=== PATIENT | female | born 1985 | race Caucasian/White ===

== ENCOUNTER → 2020-05-12 | Outpatient (CLI) | payer OTHER ==
[~2020-05-12] MED LIST: ALBIPROI INH; AMOX500 PO; HYDACE5 PO; HYDACE7.5L PO; LEVFLO500 PO; LEVSOD88 PO; MAGCIT300 PO; MULVITMINE PO; NAPR500 PO; NAPR550 PO; OXYACE5T PO; PHENA200 PO; PHENTERMINE PO; PROM25 PO; RXCEPH250S PO; RXHYDACE PO; RXNAPNA550 PO; RXOXYACE PO; SENN187 PO; STOMUL PO; SULTRIDS PO
[2020-05-13 14:41] LABS: Candida species (DNA Probe) Negative (NEGATIVE); G. vaginalis (DNA Probe) Negative (NEGATIVE); T. vaginalis (DNA Probe) Negative (NEGATIVE)
[2020-05-16 15:08] LABS: HPV 16 Negative (Negative); HPV 18 Negative (Negative); HPV OTHER HR TYPES Negative (Negative)
== END | disposition home or self-care (01) ==
LOC: LAB 17:27 → LAB SHORT 17:27
PROVIDERS: Nurse Practitioner Family
DX: Z01.419 Encounter for gynecological examination (general) (routine) without abnormal findings (principal)
CPT/HCPCS: 87070; 87106; 87205; 87480; 87510; 87624; 87660; G0123

== ENCOUNTER 2021-03-28 07:16 | Inpatient (IN) | payer OTHER ==
[~2021-03-28] VITALS: Ht 162.6 cm; Wt 80.5 kg
[2021-03-28 07:45] LABS: BASOPHILS ABSOLUTE AUTO 0.03 K/mm3 (0.00-0.23); BASOPHILS PERCENT AUTO 0 % (0-2); EOSINOPHILS PERCENT AUTO 0 % (0-6); Hemoglobin 14.5 g/dL (11.5-16.0); IMMATURE GRAN ABSOLUTE AUTO 0.04 K/mm3 (0.00-0.10); IMMATURE GRAN PERCENT AUTO 1 % (0-1); LYMPHOCYTES ABSOLUTE AUTO 1.38 K/mm3 (0.84-5.20); LYMPHOCYTES PERCENT AUTO 18 % (21-46); MONOCYTES ABSOLUTE AUTO 0.51 K/mm3 (0.16-1.47); MONOCYTES PERCENT AUTO 7 % (4-13); Mean Corpuscular HGB 27.5 pg (26.0-34.0); Mean Corpuscular HGB Conc 31.5 g/dL (31.5-36.5); Mean Corpuscular Volume 87 fL (80-100); Mean Platelet Volume 11.5 fL (9.1-12.4); NEUTROPHILS ABSOLUTE AUTO 5.81 K/mm3 (1.96-9.15); NEUTROPHILS PERCENT AUTO 75 % (41-73); Platelet Count 309 K/mm3 (150-400); RDW Coefficient Variation 14.2 % (11.7-14.2); RDW Standard Deviation 45.8 fL (35.1-46.3); Red Blood Cell Count 5.28 M/mm3 (3.80-5.20); White Blood Cell Count 7.77 K/mm3 (4.00-11.30)
[2021-03-28 08:27] LABS: Alanine Aminotransfer (ALT/SGP 35 U/L (12-78); Albumin/Globulin Ratio 0.8 (0.8-1.8); Alk Phos 94 U/L (50-136); Anion Gap 27 mmol/L (6-16); Aspartate Aminotrans (AST/SGOT 27 U/L (12-37); Bilirubin, Total 0.4 mg/dL (0.1-1.0); Blood Urea Nitrogen 15 mg/dL (8-24); Bun/Creatinine Ratio 16.9 (12.0-20.0); CO2, Blood 7 mmol/L (21-32); Calcium, Blood 9.8 mg/dL (8.5-10.1); Chloride, Blood 98 mmol/L (98-108); Creatinine, Blood 0.89 mg/dL (0.40-1.00); Globulin, Blood 4.8 g/dL (2.2-4.0); Glomerular Filtration Rate >60 (60-); Glucose, Blood 484 mg/dL (70-99); Potassium, Blood 4.8 mmol/L (3.5-5.5); Sodium, Blood 132 mmol/L (136-145); Total Protein, Blood 8.8 g/dL (6.4-8.2)
[2021-03-28 10:01] LABS: PCO2 Venous 24 mmHg (38-42); PO2 Venous 104 mmHg (38-42); pH Blood Venous 7.09 (7.34-7.37)
[2021-03-28 10:02] LABS: Base Excess Venous -22.7 mmol/L; Bicarbonate Venous 9.8 mmol/L (24.0-30.0)
[2021-03-28] MEDS ORDERED: ATORVASTATIN CA20 MG PO (12:04)
[2021-03-28] MEDS ORDERED: GLIMEPIRIDE4 MG PO (12:04)
[2021-03-28] MEDS ORDERED: MONT10T PO (12:05)
[2021-03-28] MEDS ORDERED: HYDROXYZINE PAM25 MG PO (12:05)
[2021-03-28] MEDS ORDERED: ZOLOFT25 MG PO (12:05)
[2021-03-28] MEDS ORDERED: PROP10 PO (12:06)
[2021-03-28] MEDS ORDERED: SYNTHROID150 MC2 PO (12:06)
[2021-03-28] MEDS ORDERED: GABA100 PO (12:06)
[2021-03-28] MEDS ORDERED: CYMBALTA20 M2 PO (12:06)
[2021-03-28] MEDS ORDERED: BASAGLAR K100 UNIT/1 SC (12:07)
[2021-03-28] MEDS ORDERED: Depo-Prove150 MG/11 IM (12:08)
[2021-03-28] MEDS ORDERED: FAMO20 PO (12:08)
[2021-03-28 12:14] LABS: U Amphetamine Screen Not Detected; U Barbituate Screen Not Detected; U Benzodiazapine Screen Not Detected; U Buprenorphine Screen Not Detected; U Cannabinoids Screen DETECTED; U Cocaine Screen Not Detected; U Methadone Screen Not Detected; U Methamphetamine Screen Not Detected; U Opiates Screen Not Detected; U Oxycodone Screen Not Detected; U Phencyclidine Screen Not Detected; U Propoxyphene Screen Not Detected
[2021-03-28 13:51] LABS: SARS-Cov-2 (COVID-19) PCR, MMC POSITIVE (NEGATIVE)
[2021-03-28 14:13] LABS: Anion Gap 13 mmol/L (6-16); Blood Urea Nitrogen 15 mg/dL (8-24); Bun/Creatinine Ratio 19.3 (12.0-20.0); CO2, Blood 15 mmol/L (21-32); Calcium, Blood 9.3 mg/dL (8.5-10.1); Chloride, Blood 107 mmol/L (98-108); Creatinine, Blood 0.78 mg/dL (0.40-1.00); Glomerular Filtration Rate >60 (60-); Glucose, Blood 215 mg/dL (70-99); Potassium, Blood 4.4 mmol/L (3.5-5.5); Sodium, Blood 135 mmol/L (136-145)
[2021-03-28 16:31] LABS: Anion Gap 14 mmol/L (6-16); Blood Urea Nitrogen 14 mg/dL (8-24); Bun/Creatinine Ratio 19.5 (12.0-20.0); CO2, Blood 15 mmol/L (21-32); Calcium, Blood 8.8 mg/dL (8.5-10.1); Chloride, Blood 109 mmol/L (98-108); Creatinine, Blood 0.72 mg/dL (0.40-1.00); Glomerular Filtration Rate >60 (60-); Glucose, Blood 198 mg/dL (70-99); Potassium, Blood 4.5 mmol/L (3.5-5.5); Sodium, Blood 138 mmol/L (136-145)
--- NOTE | 2021-03-28 18:16 | NUR ---
SHIFT SUMMARY PT ARRIVED TO PCU VIA HOSPITAL BED APPROX 1330 W/ INSULIN DRIP RUNNING AT 3.8. PT WAS/IS ON RA AND SATURATIONS RANGE IN UPPER 90'S. PT IS ALERT AND ORIENTED X4 AND USES THE CALL LIGHT APPROPRIATELY. INSULIN DRIP NOW RUNNING AT 3.5 UNITS/HR W/ Q1 BG AND VITAL ASSESSMENT. D5 W 1/2 NS ALSO RUNNING AT 200ML/HR PER EMAR ORDERS. PT COMPLAINED OF NAUSEA AND WAS TREATED PER EMAR W/ ZOFRAN. PT IS INDEPENDANT AND CAN USE BEDSIDE COMMODE OR BEDPAN. SHE REMAINS NPO BUT ENJOYS ICE CHIPS. PT NOW APPEARS TO BE SLEEPING, CALL LIGHT IN REACH. WILL CONTINUE TO MONITOR.
[2021-03-28 20:48] LABS: Anion Gap 8 mmol/L (6-16); Blood Urea Nitrogen 13 mg/dL (8-24); Bun/Creatinine Ratio 20.6 (12.0-20.0); CO2, Blood 19 mmol/L (21-32); Calcium, Blood 8.5 mg/dL (8.5-10.1); Chloride, Blood 109 mmol/L (98-108); Creatinine, Blood 0.63 mg/dL (0.40-1.00); Glomerular Filtration Rate >60 (60-); Glucose, Blood 257 mg/dL (70-99); Potassium, Blood 3.9 mmol/L (3.5-5.5); Sodium, Blood 136 mmol/L (136-145)
--- NOTE | 2021-03-28 22:44 | NUR ---
2200 cbg cbg at 2200 was 212. GLUCOMETER DID NOT TRANSFER OVER TO [facility]
[2021-03-29 02:21] LABS: BASOPHILS ABSOLUTE AUTO 0.01 K/mm3 (0.00-0.23); BASOPHILS PERCENT AUTO 0 % (0-2); EOSINOPHILS PERCENT AUTO 0 % (0-6); Hematocrit 37.4 % (33.0-51.0); Hemoglobin 12.5 g/dL (11.5-16.0); IMMATURE GRAN ABSOLUTE AUTO 0.01 K/mm3 (0.00-0.10); IMMATURE GRAN PERCENT AUTO 0 % (0-1); LYMPHOCYTES ABSOLUTE AUTO 2.06 K/mm3 (0.84-5.20); LYMPHOCYTES PERCENT AUTO 38 % (21-46); MONOCYTES ABSOLUTE AUTO 0.84 K/mm3 (0.16-1.47); MONOCYTES PERCENT AUTO 15 % (4-13); Mean Corpuscular HGB 27.5 pg (26.0-34.0); Mean Corpuscular HGB Conc 33.4 g/dL (31.5-36.5); Mean Platelet Volume 10.8 fL (9.1-12.4); NEUTROPHILS ABSOLUTE AUTO 2.58 K/mm3 (1.96-9.15); NEUTROPHILS PERCENT AUTO 47 % (41-73); Platelet Count 250 K/mm3 (150-400); RDW Coefficient Variation 14.1 % (11.7-14.2); RDW Standard Deviation 42.3 fL (35.1-46.3); Red Blood Cell Count 4.54 M/mm3 (3.80-5.20)
[2021-03-29 02:22] LABS: Mean Corpuscular Volume 82 fL (80-100)
--- NOTE | 2021-03-29 02:30 | NUR ---
UPDATE 0115 PT'S CBG WAS 94 SO PROVIDER WAS CONTACTED WHO INSTRUCTED THIS RN TO CONTINUE THE INSULIN GTT AT 5 BUT TURN THE D5W DOWN FROM 200ML/HR TO 100ML/HR AND SEE HOW SHE RESPONDS. ONE HR LATER THE PT'S CBG WAS 65 SO THIS RN SPOKE W ICU CHARGE EDILSON SIFUENTES WHO INSTRUCTED THIS RN TO DC THE INSULIN GTT AND RESTART THE D5W AT 200ML/HR. ONE HOUR LATER THE PT'S CBG IS 94 AND ICU CHARGE AGREED TO KEEP INSULIN GTT OFF AT THIS TIME. D5W CONTINUES TO RUN AT 200ML/HR.
[2021-03-29 02:44] LABS: Anion Gap 8 mmol/L (6-16); Blood Urea Nitrogen 10 mg/dL (8-24); Bun/Creatinine Ratio 17.1 (12.0-20.0); CO2, Blood 18 mmol/L (21-32); Calcium, Blood 8.4 mg/dL (8.5-10.1); Chloride, Blood 112 mmol/L (98-108); Creatinine, Blood 0.59 mg/dL (0.40-1.00); Glomerular Filtration Rate >60 (60-); Glucose, Blood 117 mg/dL (70-99); Potassium, Blood 3.3 mmol/L (3.5-5.5); Sodium, Blood 138 mmol/L (136-145)
--- NOTE | 2021-03-29 06:12 | NUR ---
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 INSULIN GTT CURRENTLY RUNNING AT 2 AND D5W AT 125ML/HR. PT HAS MAINTAINED O2 SATS >92% ON RM AIR AND DENIED ANY SOB. VSS THIS SHIFT. WILL REPORT TO ONCOMING RN.
--- NOTE | 2021-03-29 08:30 | NUR ---
PT ALERT AND ORIENTED X4. NEURO WNL. STATES SHE HAS CHRONIC NEUROPATHY. DENIES NUMBNESS AND TINGLING AT THIS TIME. TELE SHOWING SINUS TACH WITH HR 100-105. DENIES CHEST PAIN/PRESSURE. NO SIGNS OF EDEMA. PPP. ON ROOM AIR. LUNGS SOUNDING CLEAR. NO COUGHING. BOWEL TONES PRESENT. DENIES NAUSEA/ABDOMINAL PAIN. UP TO BSC WITH 1 PERSON ASSIST. INSULIN DRIP IN PLACE WELL D5W1/2NS. CBG Q1.
[2021-03-29 09:44] LABS: Anion Gap 6 mmol/L (6-16); Blood Urea Nitrogen 7 mg/dL (8-24); Bun/Creatinine Ratio 11.6 (12.0-20.0); CO2, Blood 19 mmol/L (21-32); Calcium, Blood 8.2 mg/dL (8.5-10.1); Chloride, Blood 112 mmol/L (98-108); Glomerular Filtration Rate >60 (60-); Glucose, Blood 213 mg/dL (70-99); Potassium, Blood 3.5 mmol/L (3.5-5.5); Sodium, Blood 137 mmol/L (136-145)
--- NOTE | 2021-03-29 11:04 | NUR ---
DR. VARGAS IN TO SEE PATIENT. PLAN TO STOP INSULIN DRIP 2 HOURS POST LONG ACTING INSULIN ADMINISTERED. DIET ORDERED. SHORT ACTING INSULIN ON BOARD WELL. WILL CONTINUE TO MONITOR CBG. VITAL SIGNS REMAIN STABLE.
--- NOTE | 2021-03-29 12:20 | NUR ---
PT EATING AT THIS TIME. LONG ACTING AND SHORT ACTING INSULIN GIVEN. WILL CONTINUE TO MONITOR CBG. VITAL SIGNS STABLE.
[2021-03-29] MEDS ORDERED: HUMALOG KW100 UNIT/1 SC (17:11)
--- NOTE | 2021-03-29 18:44 | NUR ---
DISCHARGE: PATIENT REMAINS STABLE. ABLE TO EAT DINNER. MONITORING BLOOD SUGAR. DIABETIC EDUCATION PAMPHLETS AND SHEETS PROVIDED AND REVIEWED WITH PATIENT. IMPORTANCE OF MONITORING BLOOD SUGAR REVIEWED. PATIENT ENCOURAGED TO KEEP LOG OF BLOOD SUGARS TO DISCUSS WITH PCP. SHORT ACTING INSULIN REVIEWED WELL. PATIENT ABLE TO VERBALIZE AND TEACH BACK. DISCHARGE INSTRUCTIONS REVIEWED AND QUESTIONS ANSWERED. PATIENT VITAL SIGNS STABLE. DENIES ANY PAINS. IV'S TAKEN OUT PER PROTOCOL WNL. PATIENT FAMILY IN TO PICK PATIENT UP. PATIENT LEFT UNIT WITH ALL PERSONAL BELONGINGS AND DISCHARGE PACKET VIA WHEELCHAIR.
== END 2021-03-29 18:23 | disposition home or self-care (01) | DRG 637 ==
LOC: ER 07:16 → ICUW 10:17 → PCU 13:53
PROVIDERS: Emergency Medicine; Family Medicine; Internal Medicine; Nurse Practitioner Acute Care; ADMIT Hospitalist
PROC: 8E0ZXY6 Isolation (ICD-10-PCS; principal; 2021-03-28)
DX: E11.10 Type 2 diabetes mellitus with ketoacidosis without coma (principal); U07.1 COVID-19; K21.9 Gastro-esophageal reflux disease without esophagitis; F41.9 Anxiety disorder, unspecified; E83.51 Hypocalcemia; F32.9 Major depressive disorder, single episode, unspecified; Z87.442 Personal history of urinary calculi; Z88.5 Allergy status to narcotic agent; Z79.4 Long term (current) use of insulin
CPT/HCPCS: 36415; 71045; 80048; 80053; 81025; 82010; 82803; 82947; 83690; 83735; 84443; 85025; 96374; 96375; 99285-25; A9270; J1650; J1815; J2060; J2405; J3480; J7042; J7120; U0004

== ENCOUNTER 2021-06-12 02:52 | Inpatient (IN) | payer OTHER ==
[~2021-06-12] VITALS: Ht 162.6 cm; Wt 77.6 kg
[~2021-06-12 02:52] MED LIST changes: +ATORVASTATIN CA20 MG PO; +BASAGLAR K100 UNIT/1 SC; +CYMBALTA20 M2 PO; +Depo-Prove150 MG/11 IM; +FAMO20 PO; +GABA100 PO; +GLIMEPIRIDE4 MG PO; +HUMALOG KW100 UNIT/1 SC; +HYDROXYZINE PAM25 MG PO; +MONT10T PO; +PROP10 PO; +SYNTHROID150 MC2 PO; +ZOLOFT25 MG PO
[2021-06-12 03:41] LABS: BASOPHILS ABSOLUTE AUTO 0.04 K/mm3 (0.00-0.23); BASOPHILS PERCENT AUTO 0 % (0-2); EOSINOPHILS ABSOLUTE AUTO 0.01 K/mm3 (0.00-0.68); EOSINOPHILS PERCENT AUTO 0 % (0-6); Hematocrit 46.9 % (33.0-51.0); Hemoglobin 15.1 g/dL (11.5-16.0); IMMATURE GRAN ABSOLUTE AUTO 0.08 K/mm3 (0.00-0.10); IMMATURE GRAN PERCENT AUTO 1 % (0-1); LYMPHOCYTES ABSOLUTE AUTO 1.69 K/mm3 (0.84-5.20); LYMPHOCYTES PERCENT AUTO 15 % (21-46); MONOCYTES ABSOLUTE AUTO 0.53 K/mm3 (0.16-1.47); MONOCYTES PERCENT AUTO 5 % (4-13); Mean Corpuscular HGB 28.2 pg (26.0-34.0); Mean Corpuscular HGB Conc 32.2 g/dL (31.5-36.5); Mean Corpuscular Volume 88 fL (80-100); Mean Platelet Volume 11.4 fL (9.1-12.4); NEUTROPHILS PERCENT AUTO 80 % (41-73); Platelet Count 457 K/mm3 (150-400); RDW Coefficient Variation 13.7 % (11.7-14.2); RDW Standard Deviation 43.7 fL (35.1-46.3); Red Blood Cell Count 5.36 M/mm3 (3.80-5.20); White Blood Cell Count 11.65 K/mm3 (4.00-11.30)
[2021-06-12 04:16] LABS: Alanine Aminotransfer (ALT/SGP 30 U/L (12-78); Albumin, Blood 4.1 g/dL (3.4-5.0); Albumin/Globulin Ratio 0.8 (0.8-1.8); Alk Phos 122 U/L (50-136); Anion Gap 24 mmol/L (6-16); Aspartate Aminotrans (AST/SGOT 30 U/L (12-37); Bilirubin, Total 0.5 mg/dL (0.1-1.0); Blood Urea Nitrogen 14 mg/dL (8-24); Bun/Creatinine Ratio 20.2 (12.0-20.0); CO2, Blood 4 mmol/L (21-32); Calcium, Blood 9.6 mg/dL (8.5-10.1); Chloride, Blood 103 mmol/L (98-108); Creatinine, Blood 0.69 mg/dL (0.40-1.00); Globulin, Blood 5.4 g/dL (2.2-4.0); Glomerular Filtration Rate >60 (60-); Glucose, Blood 410 mg/dL (70-99); Potassium, Blood 5.9 mmol/L (3.5-5.5); Sodium, Blood 131 mmol/L (136-145); Total Protein, Blood 9.5 g/dL (6.4-8.2)
[2021-06-12 07:56] LABS: Base Excess Venous -24.5 mmol/L; Bicarbonate Venous 9.1 mmol/L (24.0-30.0); PCO2 Venous 18.1 mmHg (38-42)
[2021-06-12 07:57] LABS: pH Blood Venous 7.09 (7.34-7.37)
[2021-06-12 08:58] LABS: Anion Gap 19 mmol/L (6-16); Blood Urea Nitrogen 13 mg/dL (8-24); CO2, Blood 7 mmol/L (21-32); Calcium, Blood 8.9 mg/dL (8.5-10.1); Chloride, Blood 112 mmol/L (98-108); Creatinine, Blood 0.72 mg/dL (0.40-1.00); Glomerular Filtration Rate >60 (60-); Glucose, Blood 254 mg/dL (70-99); Sodium, Blood 138 mmol/L (136-145)
[2021-06-12 09:08] LABS: Potassium, Blood 3.6 mmol/L (3.5-5.5)
[2021-06-12 11:10] LABS: Source, Urine Voided
[2021-06-12 11:18] LABS: Appearance, Urine Clear (Clear); Bilirubin, Urine Neg (Neg); Blood, Urine 1+ (Neg); Color, Urine Yellow (P-Yellow); Glucose Qualitative, Urine 4+ (Neg); Ketones, Urine 4+ (Neg); Leukocyte Esterase, Urine Neg (Neg); Nitrite, Urine Neg (Neg); Protein, Urine 2+ (Neg); Specific Gravity, Urine 1.025 (1.003-1.022); Urobilinogen, Urine NORM (Normal)
[2021-06-12 11:39] LABS: Bacteria Rare /hpf; Squamous Epithelial Cells Mod /hpf (Few); White Blood Cells, Urine 0-2 /hpf (0-5)
[2021-06-12 11:41] LABS: Anion Gap 19 mmol/L (6-16); Blood Urea Nitrogen 11 mg/dL (8-24); Bun/Creatinine Ratio 18.7 (12.0-20.0); CO2, Blood 8 mmol/L (21-32); Calcium, Blood 8.8 mg/dL (8.5-10.1); Chloride, Blood 110 mmol/L (98-108); Creatinine, Blood 0.59 mg/dL (0.40-1.00); Glomerular Filtration Rate >60 (60-); Glucose, Blood 180 mg/dL (70-99); Potassium, Blood 3.4 mmol/L (3.5-5.5); Sodium, Blood 137 mmol/L (136-145)
[2021-06-12 11:51] LABS: Influenza A, PCR NEGATIVE (NEGATIVE); Influenza B, PCR NEGATIVE (NEGATIVE); Resp Syncytial Virus, PCR NEGATIVE (NEGATIVE); SARS-Cov-2 (COVID-19) PCR, MMC NEGATIVE (NEGATIVE)
[2021-06-12 13:32] LABS: Anion Gap 11 mmol/L (6-16); Blood Urea Nitrogen 10 mg/dL (8-24); Bun/Creatinine Ratio 17.2 (12.0-20.0); CO2, Blood 14 mmol/L (21-32); Calcium, Blood 8.6 mg/dL (8.5-10.1); Chloride, Blood 112 mmol/L (98-108); Creatinine, Blood 0.58 mg/dL (0.40-1.00); Glomerular Filtration Rate >60 (60-); Glucose, Blood 214 mg/dL (70-99); Potassium, Blood 3.7 mmol/L (3.5-5.5); Sodium, Blood 137 mmol/L (136-145)
[2021-06-12 15:35] LABS: Anion Gap 12 mmol/L (6-16); Blood Urea Nitrogen 9 mg/dL (8-24); Bun/Creatinine Ratio 16.5 (12.0-20.0); CO2, Blood 13 mmol/L (21-32); Calcium, Blood 8.7 mg/dL (8.5-10.1); Chloride, Blood 112 mmol/L (98-108); Creatinine, Blood 0.55 mg/dL (0.40-1.00); Glomerular Filtration Rate >60 (60-); Glucose, Blood 206 mg/dL (70-99); Potassium, Blood 4.4 mmol/L (3.5-5.5); Sodium, Blood 137 mmol/L (136-145)
[2021-06-12 17:41] LABS: Anion Gap 9 mmol/L (6-16); Blood Urea Nitrogen 9 mg/dL (8-24); Bun/Creatinine Ratio 14.6 (12.0-20.0); CO2, Blood 16 mmol/L (21-32); Calcium, Blood 8.1 mg/dL (8.5-10.1); Chloride, Blood 111 mmol/L (98-108); Creatinine, Blood 0.62 mg/dL (0.40-1.00); Glomerular Filtration Rate >60 (60-); Glucose, Blood 329 mg/dL (70-99); Potassium, Blood 3.3 mmol/L (3.5-5.5); Sodium, Blood 136 mmol/L (136-145)
--- NOTE | 2021-06-12 18:03 | NUR ---
SHIFT SUMMARY... NO ACUTE NEGATIVE CHANGES NOTED SINCE PT ARRIVAL TO THE UNIT. THE PT'S INSULIN GTT IS CURRENTLY RUNNING AT 6UNITS/HR WITH Q1 HR CBGs. THE PT HAS D5 W 1/2 NS RUNNING AT 200MLS/HR. THE PT'S HR CONTINUES TO BE IN THE LOW 100'S WITH BPs SOFT BUT STABLE WITH SBPs IN THE 90'S. THE PT DENIES ANY CHEST PAIN/PRESSURE. THE PT DID C/O OF NAUSEA AND WAS TREATED WITH ZOFRAN PER EMAR WITH GOOD RESULTS. PER DR. VARGAS THE PT IS TO CONTINUE ON THE INSULIN GTT UNTIL THE AM AND THEN DR. Megan BOYD WITH TRANSITION HER TO SUB Q INSULIN AND MEALS. CALL LIGHT IN REACH WILL CONTINUE TO MONITOR UNTIL REPORT IS GIVEN TO ONCOMING RN.
--- NOTE | 2021-06-12 19:00 | NUR ---
ASSUMED CARE ASSUMED CARE OF PATIENT. SLEEPING WHEN UNDISTURBED. ROUSES EASILY TO VERBAL STIMULI. DENIES C/O PAIN OR NAUSEA. TOLERATING PO WATER. INSULIN GTT CONTINUES AT 8UNITS/HR. D5 1/2 NS INFUSING AT 200CC/HR PER ORDER. MONITOR SHOWS ST, RATE 100-105. BP STABLE. RA SATS STABLE, RESPIRATIONS EVEN AND UNLABORED. SEE SHIFT ASSESSMENT FOR FULL ASSESSMENT.
[2021-06-12 19:43] LABS: Anion Gap 10 mmol/L (6-16); Blood Urea Nitrogen 8 mg/dL (8-24); CO2, Blood 17 mmol/L (21-32); Calcium, Blood 8.4 mg/dL (8.5-10.1); Chloride, Blood 111 mmol/L (98-108); Creatinine, Blood 0.54 mg/dL (0.40-1.00); Glomerular Filtration Rate >60 (60-); Glucose, Blood 225 mg/dL (70-99); Potassium, Blood 3.2 mmol/L (3.5-5.5); Sodium, Blood 138 mmol/L (136-145)
[2021-06-13 04:11] LABS: BASOPHILS ABSOLUTE AUTO 0.03 K/mm3 (0.00-0.23); BASOPHILS PERCENT AUTO 0 % (0-2); EOSINOPHILS ABSOLUTE AUTO 0.11 K/mm3 (0.00-0.68); EOSINOPHILS PERCENT AUTO 2 % (0-6); Hemoglobin 11.2 g/dL (11.5-16.0); IMMATURE GRAN ABSOLUTE AUTO 0.02 K/mm3 (0.00-0.10); IMMATURE GRAN PERCENT AUTO 0 % (0-1); LYMPHOCYTES PERCENT AUTO 36 % (21-46); MONOCYTES ABSOLUTE AUTO 0.72 K/mm3 (0.16-1.47); MONOCYTES PERCENT AUTO 10 % (4-13); Mean Corpuscular HGB 27.7 pg (26.0-34.0); Mean Corpuscular HGB Conc 33.9 g/dL (31.5-36.5); Mean Platelet Volume 11.1 fL (9.1-12.4); NEUTROPHILS ABSOLUTE AUTO 3.81 K/mm3 (1.96-9.15); NEUTROPHILS PERCENT AUTO 52 % (41-73); Platelet Count 306 K/mm3 (150-400); RDW Coefficient Variation 13.5 % (11.7-14.2); Red Blood Cell Count 4.04 M/mm3 (3.80-5.20); White Blood Cell Count 7.29 K/mm3 (4.00-11.30)
[2021-06-13 04:29] LABS: Anion Gap 10 mmol/L (6-16); Blood Urea Nitrogen 6 mg/dL (8-24); Bun/Creatinine Ratio 10.8 (12.0-20.0); CO2, Blood 17 mmol/L (21-32); Calcium, Blood 8.7 mg/dL (8.5-10.1); Chloride, Blood 113 mmol/L (98-108); Creatinine, Blood 0.56 mg/dL (0.40-1.00); Glomerular Filtration Rate >60 (60-); Glucose, Blood 206 mg/dL (70-99); Potassium, Blood 3.6 mmol/L (3.5-5.5); Sodium, Blood 140 mmol/L (136-145)
[2021-06-13 05:45] LABS: Mean Corpuscular Volume 82 fL (80-100)
--- NOTE | 2021-06-13 06:46 | NUR ---
SHIFT SUMMARY NO ACUTE CHANGES DURING NOC. INSULIN GTT INFUSED BETWEEN 2-8UNITS/HR- NOW AT 4UNITS/HR. CBG BETWEEN 141-236. PLAN PER MD IS TO TRANSITION TO S/S COVERAGE THIS AM. PT SLEPT WHEN UNDISTURBED. UP TO BSC WITH STAND-BY ASSIST FOR LINES. PT DOES C/O DIZZINESS WHEN UP. GENERAL WEAKNESS NOTED. DENIED NAUSEA T/O SHIFT, EXCEPT C/O MILD NAUSEA THIS AM WHEN UP TO BSC. DENIED NEED FOR ANTI-EMETIC. D5 1/2 NS INFUSING AT 200CC/HR PER ORDER. VOIDING WITHOUT DIFFICULTY. WILL REPORT TO ONCOMING RN WHEN AVAILABLE.
--- NOTE | 2021-06-13 08:40 | NUR ---
AM NOTE.... ASSUMED CARE OF PT AT 0700, PT IS A&Ox4 THE PT IS ON AN INSULIN GTT RUNNING AT 4UNITS/HR WITH CBGs Q1HR. THE PT IS ON D5 W 1/2 NS AT 200MLS/HR. THE PT'S VS STABLE AT THIS TIME SHE IS IN ST IN THE LOW 100'S, BP STABLE. NO EDEMA NOTED ON ASSESSMENT. PT IS ON RA WITH O2 SATS >90% L/S CLEAR T/O. THE PT IS C/O OF NAUSEA, SHE WAS MEDICATED PER EMAR. DR. Megan BOYD AT THE BEDSIDE, PT IS TO START LONG ACTING AND TRASITION OFF THE DRIP. CALL LIGHT IN REACH WILL CONTINUE TO MONITOR.
--- NOTE | 2021-06-13 10:52 | NUR ---
PT UPDATE... PT WAS GIVEN SUB Q LONG ACTING INSULING PER ORDERS, WILL CONTINUE THE DRIPS FOR 2 HOURS THEN CHECK THE PT'S CBG ACHS ON A LOW S/S WITH HUMALOG. THIS RN PROVIDED THE PT WITH SICK DAY GUIDELINES FOR TYPE 2 DIABETES PRINTED EDUCATION ALONG WITH VERBAL EDUCATION ON DIABETES, INSLUIN AND OVER BLOOD SUGAR CONTROL. THE PT TOLD THIS RN THAT AT HOME WHEN SHE TAKES HER INSULIN PER HER PCP'S ORDERS HER CBGs DROP TO THE 60'S. THE PT STATED THAT SHE CAN FEEL WHEN HER BLOOD SUGARS "DROP". SHE ALSO STATED THAT HER LAST A1C WAS "REALLY HIGH." WILL CONTINUE TO MONITOR AND PROVIDE EDUCATION.
--- NOTE | 2021-06-13 12:03 | NUR ---
PT UPDATE... THE INSULIN AND D5 W 1/2 NS WAS STOPPED PER ORDERS. THE PT'S WAS GIVEN 2UNITS SUB Q HUMALOG PER LOW S/S. THE PT DENIES ANY N/V AT THIS TIME AND IS CURRENTLY EATING HER LUNCH. WILL CONTINUE TO MONITOR.
[2021-06-13] MEDS ORDERED: ONDA4ODT MM (16:30)
--- NOTE | 2021-06-13 16:52 | NUR ---
PT D/C HOME... PT D/C HOME WITH ALL BELONGINGS, NEW MEDICATIONS SENT TO THE PT'S PHARMACY OF CHOICE. DIABETES EDUCATION PROVIDED IN VERBAL AND WRITTEN FORMAT. THE PT'S IVs WERE REMOVED WNL. PT REFUSED HER AC DOSE OF INSULIN, STATING SHE WOULD TAKE IT AT HOME. PT REFUSED W/C RIDE TO THE DOOR, SHE WAS ESCORTED OUT TO THE DOORS BY THIS RN.
== END 2021-06-13 16:50 | disposition home or self-care (01) | DRG 639 ==
LOC: ER 02:52 → ERHOLD 06:24 → ICUE 15:05
PROVIDERS: Family Medicine; Student in an Organized Health Care Education/Training Program; ADMIT Internal Medicine
DX: E11.10 Type 2 diabetes mellitus with ketoacidosis without coma (principal); E78.5 Hyperlipidemia, unspecified; E03.9 Hypothyroidism, unspecified; F41.3 Other mixed anxiety disorders; R25.1 Tremor, unspecified; Z88.5 Allergy status to narcotic agent; Z20.822 Contact with and (suspected) exposure to COVID-19; K21.9 Gastro-esophageal reflux disease without esophagitis; Z98.51 Tubal ligation status; Z90.49 Acquired absence of other specified parts of digestive tract; Z98.890 Other specified postprocedural states; Z79.899 Other long term (current) drug therapy
CPT/HCPCS: 0241U; 36415; 71045; 80048; 80053; 81001; 81025; 82010; 82803; 82947; 83690; 85025; 93005; 93010; 94667; 96374; 96375; 99285; A9270; C1751; J1650; J1815; J2060; J2405; J2765; J3480; J7042; J7120

== ENCOUNTER 2022-01-19 04:23 | Emergency (ER) | payer OTHER ==
[~2022-01-19] VITALS: Ht 160 cm; Wt 79.8 kg
[~2022-01-19 04:23] MED LIST changes: +INSULANPEN SC; +ONDA4ODT MM; +SENNA LAXATIVE8.6 MG PO
[2022-01-19 05:31] LABS: Albumin, Blood 3.5 g/dL (3.4-5.0); Albumin/Globulin Ratio 0.9 (0.8-1.8); Bilirubin, Total 0.3 mg/dL (0.1-1.0); Bun/Creatinine Ratio 17.8 (12.0-20.0); Creatinine, Blood 0.56 mg/dL (0.40-1.00); Globulin, Blood 3.8 g/dL (2.2-4.0); Potassium, Blood 3.1 mmol/L (3.5-5.5); Total Protein, Blood 7.3 g/dL (6.4-8.2)
[2022-01-19 05:54] LABS: BASOPHILS ABSOLUTE AUTO 0.03 K/mm3 (0.00-0.23); BASOPHILS PERCENT AUTO 0 % (0-2); EOSINOPHILS ABSOLUTE AUTO 0.04 K/mm3 (0.00-0.68); EOSINOPHILS PERCENT AUTO 0 % (0-6); Hematocrit 37.7 % (33.0-51.0); Hemoglobin 12.8 g/dL (11.5-16.0); IMMATURE GRAN ABSOLUTE AUTO 0.02 K/mm3 (0.00-0.10); IMMATURE GRAN PERCENT AUTO 0 % (0-1); LYMPHOCYTES ABSOLUTE AUTO 2.04 K/mm3 (0.84-5.20); LYMPHOCYTES PERCENT AUTO 22 % (21-46); MONOCYTES ABSOLUTE AUTO 0.76 K/mm3 (0.16-1.47); MONOCYTES PERCENT AUTO 8 % (4-13); Mean Corpuscular HGB 28.6 pg (26.0-34.0); Mean Corpuscular Volume 84 fL (80-100); Mean Platelet Volume 11.4 fL (9.1-12.4); NEUTROPHILS ABSOLUTE AUTO 6.37 K/mm3 (1.96-9.15); NEUTROPHILS PERCENT AUTO 69 % (41-73); Platelet Count 324 K/mm3 (150-400); RDW Coefficient Variation 13.1 % (11.7-14.2); RDW Standard Deviation 40.7 fL (35.1-46.3); Red Blood Cell Count 4.48 M/mm3 (3.80-5.20); White Blood Cell Count 9.26 K/mm3 (4.00-11.30)
== END 2022-01-19 08:16 | disposition home or self-care (01) ==
LOC: ER 04:23
PROVIDERS: Student in an Organized Health Care Education/Training Program
DX: R00.2 Palpitations (principal); E87.6 Hypokalemia; E11.9 Type 2 diabetes mellitus without complications; E78.5 Hyperlipidemia, unspecified; Z88.5 Allergy status to narcotic agent; Z79.899 Other long term (current) drug therapy; Z79.4 Long term (current) use of insulin
CPT/HCPCS: 36415; 80053; 82947; 85025; 93005; 93010; A9270; J3475

== ENCOUNTER 2022-06-18 21:05 | Emergency (ER) | payer OTHER ==
[~2022-06-18] VITALS: Ht 162.6 cm; Wt 81.7 kg
[~2022-06-18 21:05] MED LIST changes: +ALMACONE SUSPE355 ML PO; +OMEP20ER PO
[2022-06-18 23:44] LABS: BASOPHILS ABSOLUTE AUTO 0.06 K/mm3 (0.00-0.23); BASOPHILS PERCENT AUTO 0 % (0-2); EOSINOPHILS ABSOLUTE AUTO 0.07 K/mm3 (0.00-0.68); EOSINOPHILS PERCENT AUTO 1 % (0-6); Hemoglobin 12.5 g/dL (11.5-16.0); IMMATURE GRAN ABSOLUTE AUTO 0.07 K/mm3 (0.00-0.10); IMMATURE GRAN PERCENT AUTO 1 % (0-1); LYMPHOCYTES PERCENT AUTO 9 % (21-46); MONOCYTES ABSOLUTE AUTO 0.64 K/mm3 (0.16-1.47); MONOCYTES PERCENT AUTO 5 % (4-13); Mean Corpuscular HGB 28.3 pg (26.0-34.0); Mean Corpuscular HGB Conc 32.9 g/dL (31.5-36.5); Mean Corpuscular Volume 86 fL (80-100); Mean Platelet Volume 11.8 fL (9.1-12.4); NEUTROPHILS ABSOLUTE AUTO 12.16 K/mm3 (1.96-9.15); NEUTROPHILS PERCENT AUTO 85 % (41-73); Platelet Count 321 K/mm3 (150-400); RDW Coefficient Variation 12.4 % (11.7-14.2); RDW Standard Deviation 39.6 fL (35.1-46.3); Red Blood Cell Count 4.41 M/mm3 (3.80-5.20)
[2022-06-19 00:21] LABS: Appearance, Urine Clear (Clear); Bilirubin, Urine Neg (Neg); Blood, Urine 2+ (Neg); Color, Urine Yellow (P-Yellow); Glucose Qualitative, Urine 3+ (Neg); Ketones, Urine 4+ (Neg); Leukocyte Esterase, Urine Neg (Neg); Nitrite, Urine Neg (Neg); Protein, Urine 2+ (Neg); Source, Urine Clean Catch; Urobilinogen, Urine NORM (Normal)
[2022-06-19 00:25] LABS: Albumin, Blood 3.6 g/dL (3.4-5.0); Albumin/Globulin Ratio 0.8 (0.8-1.8); Bilirubin, Total 0.5 mg/dL (0.1-1.0); Bun/Creatinine Ratio 12.9 (12.0-20.0); Calcium, Blood 9.2 mg/dL (8.5-10.1); Creatinine, Blood 0.54 mg/dL (0.40-1.00); Globulin, Blood 4.4 g/dL (2.2-4.0); Potassium, Blood 4.1 mmol/L (3.5-5.5)
[2022-06-19 00:39] LABS: Bacteria Few /hpf; Red Blood Cells, Urine 0-2 /hpf (0-2); Squamous Epithelial Cells Few /hpf (Few); White Blood Cells, Urine 0-2 /hpf (0-5)
== END 2022-06-19 02:34 | disposition home or self-care (01) ==
LOC: ER 21:05
PROVIDERS: Anesthesiology
DX: R11.2 Nausea with vomiting, unspecified (principal); R51.9 Headache, unspecified; E10.9 Type 1 diabetes mellitus without complications
CPT/HCPCS: 36415; 80053; 81001; 85025; 93005; 93010; J1885

== ENCOUNTER 2022-06-30 10:10 | Emergency (ER) | payer OTHER ==
[~2022-06-30] VITALS: Ht 162.6 cm; Wt 86.2 kg
[2022-06-30 11:01] LABS: BASOPHILS ABSOLUTE AUTO 0.06 K/mm3 (0.00-0.23); BASOPHILS PERCENT AUTO 1 % (0-2); EOSINOPHILS ABSOLUTE AUTO 0.42 K/mm3 (0.00-0.68); EOSINOPHILS PERCENT AUTO 6 % (0-6); Hematocrit 36.6 % (33.0-51.0); Hemoglobin 12.3 g/dL (11.5-16.0); IMMATURE GRAN ABSOLUTE AUTO 0.02 K/mm3 (0.00-0.10); IMMATURE GRAN PERCENT AUTO 0 % (0-1); LYMPHOCYTES ABSOLUTE AUTO 0.96 K/mm3 (0.84-5.20); LYMPHOCYTES PERCENT AUTO 13 % (21-46); MONOCYTES ABSOLUTE AUTO 1.04 K/mm3 (0.16-1.47); MONOCYTES PERCENT AUTO 14 % (4-13); Mean Corpuscular HGB 28.4 pg (26.0-34.0); Mean Corpuscular HGB Conc 33.6 g/dL (31.5-36.5); Mean Corpuscular Volume 85 fL (80-100); Mean Platelet Volume 11.5 fL (9.1-12.4); NEUTROPHILS ABSOLUTE AUTO 4.96 K/mm3 (1.96-9.15); NEUTROPHILS PERCENT AUTO 67 % (41-73); Platelet Count 262 K/mm3 (150-400); RDW Coefficient Variation 12.1 % (11.7-14.2); RDW Standard Deviation 37.3 fL (35.1-46.3); Red Blood Cell Count 4.33 M/mm3 (3.80-5.20); White Blood Cell Count 7.46 K/mm3 (4.00-11.30)
[2022-06-30 11:15] LABS: Albumin, Blood 3.5 g/dL (3.4-5.0); Albumin/Globulin Ratio 0.9 (0.8-1.8); Bilirubin, Total 0.3 mg/dL (0.1-1.0); Bun/Creatinine Ratio 13.5 (12.0-20.0); Calcium, Blood 8.7 mg/dL (8.5-10.1); Creatinine, Blood 0.67 mg/dL (0.40-1.00); Globulin, Blood 3.9 g/dL (2.2-4.0); Potassium, Blood 4.3 mmol/L (3.5-5.5); Total Protein, Blood 7.4 g/dL (6.4-8.2)
[2022-06-30 11:45] LABS: Influenza B, PCR NEGATIVE (NEGATIVE); Resp Syncytial Virus, PCR NEGATIVE (NEGATIVE); SARS-Cov-2 (COVID-19) PCR, MMC NEGATIVE (NEGATIVE)
[2022-06-30 12:12] LABS: Influenza A, PCR POSITIVE (NEGATIVE)
[2022-06-30] MEDS ORDERED: ALBU90OI INH (12:45)
[2022-06-30] MEDS ORDERED: PRED20 PO (12:45)
== END 2022-06-30 13:06 | disposition home or self-care (01) ==
LOC: ER 10:10
PROVIDERS: Physician Assistant
DX: J10.1 Influenza due to other identified influenza virus with other respiratory manifestations (principal); E11.9 Type 2 diabetes mellitus without complications; K21.9 Gastro-esophageal reflux disease without esophagitis; E78.5 Hyperlipidemia, unspecified; Z79.899 Other long term (current) drug therapy; Z79.890 Hormone replacement therapy; Z79.4 Long term (current) use of insulin; Z88.5 Allergy status to narcotic agent; Z20.822 Contact with and (suspected) exposure to COVID-19
CPT/HCPCS: 0241U; 36415; 71046; 80053; 85025; 94640; 94645; 94664; A9270

== ENCOUNTER 2022-11-03 10:24 | Inpatient (IN) | payer OTHER ==
[~2022-11-03] VITALS: Ht 162.6 cm; Wt 83.2 kg
[~2022-11-03 10:24] MED LIST changes: +ALBU90OI INH; +PRED20 PO
[2022-11-03 11:21] LABS: BASOPHILS ABSOLUTE AUTO 0.06 K/mm3 (0.00-0.23); BASOPHILS PERCENT AUTO 1 % (0-2); EOSINOPHILS ABSOLUTE AUTO 0.04 K/mm3 (0.00-0.68); EOSINOPHILS PERCENT AUTO 0 % (0-6); Hematocrit 40.6 % (33.0-51.0); Hemoglobin 12.6 g/dL (11.5-16.0); IMMATURE GRAN ABSOLUTE AUTO 0.03 K/mm3 (0.00-0.10); IMMATURE GRAN PERCENT AUTO 0 % (0-1); LYMPHOCYTES ABSOLUTE AUTO 2.23 K/mm3 (0.84-5.20); LYMPHOCYTES PERCENT AUTO 20 % (21-46); MONOCYTES ABSOLUTE AUTO 0.65 K/mm3 (0.16-1.47); MONOCYTES PERCENT AUTO 6 % (4-13); Mean Corpuscular HGB 27.2 pg (26.0-34.0); Mean Corpuscular Volume 88 fL (80-100); Mean Platelet Volume 11.5 fL (9.1-12.4); NEUTROPHILS ABSOLUTE AUTO 8.42 K/mm3 (1.96-9.15); NEUTROPHILS PERCENT AUTO 74 % (41-73); Platelet Count 393 K/mm3 (150-400); RDW Coefficient Variation 13.5 % (11.7-14.2); RDW Standard Deviation 43.1 fL (35.1-46.3); Red Blood Cell Count 4.64 M/mm3 (3.80-5.20); White Blood Cell Count 11.43 K/mm3 (4.00-11.30)
[2022-11-03 11:24] LABS: Base Excess Venous -14.9 mmol/L; Bicarbonate Venous 14.6 mmol/L (24.0-30.0); PCO2 Venous 23.8 mmHg (38-42)
[2022-11-03 11:41] LABS: Magnesium, Blood 1.5 mg/dL (1.6-2.4)
[2022-11-03 11:42] LABS: Albumin, Blood 3.8 g/dL (3.4-5.0); Albumin/Globulin Ratio 0.9 (0.8-1.8); Bilirubin, Total 0.7 mg/dL (0.1-1.0); Calcium, Blood 9.1 mg/dL (8.5-10.1); Creatinine, Blood 0.63 mg/dL (0.40-1.00); Globulin, Blood 4.3 g/dL (2.2-4.0); Potassium, Blood 4.6 mmol/L (3.5-5.5); Total Protein, Blood 8.1 g/dL (6.4-8.2)
[2022-11-03 15:31] VITALS: BP 101/60
[2022-11-03] MEDS ORDERED: POTA8 PO ×2 (15:40)
--- NOTE | 2022-11-03 17:27 | NUR ---
ADMISSION/SHIFT SUMMARY: PT ADMITTED FROM ER THIS AFTERNOON, ARRIVES AT APPROX 1525. PT IS A&Ox4, COOPERATIVE W/CARE AND ABLE TO MAKE NEEDS KNOWN. O2 SATS >93% ON RA, PT DENIES SOB. SR/ST ON MONITOR, RATE RANGING 90s-110s. PT REPORTS N/V/D x1 WEEK, DENIES NAUSEA AT THIS TIME, STATES NO VOMITING OR DIARRHEA SINCE ARRIVAL TO ER. PT STATES THAT SHE WAS DX'd W/GESTATIONAL DIABETES WHILE THEN DX'd W/TYPE 1 DIABETES APPROX 1 YEAR AGO, CURRENTLY MANAGES GLUCOSE LEVELS W/INSULIN BUT HAD NOT BEEN TREATING HER GLUCOSE LEVELS LATELY B/C SHE DIDN'T HAVE GOOD PO INTAKE THIS PAST WEEK AND BECAME WORRIED ABOUT LOWERING HER LEVELS TOO MUCH. PT HAS BEEN MEDICATED PER EMAR FOR GLUCOSE LEVELS. FLUIDS INFUSING PER ORDERS. AT THIS TIME, PT IS RESTING QUIETLY IN ROOM W/CALL LIGHT IN REACH. WILL CONTINUE TO MONITOR AND TREAT ACCORDINGLY UNTIL CHANGE OF SHIF.T
[2022-11-03 19:35] VITALS: BP 115/68
[2022-11-04 00:02] VITALS: BP 112/72
[2022-11-04 04:07] VITALS: BP 104/66
--- NOTE | 2022-11-04 05:16 | NUR ---
SHIFT SUMMARY PT IS A/Ox4 AND COOPERATIVE WITH CARE PROVIDED BY [facility]. ANSWERS QUESTIONS APPROPRIATELY AND ABLE TO MAKE HER NEEDS KNOWN. NO ACUTE EVENTS OVERNIGHT FOR PT WAS ABLE TO GET INTERMITTENT SLEEP T/O THE NIGHT. CBG'S HAVE TRENDED DOWN DURING THE NIGHT WITH CBG'S IN THE 140'S. N/V HAVE BEEN WELL CONTROLLED ORDERD VIA EMAR. MAINTAINS SPO2 >95% ON RA WITH NO SOB OR DYSPNEA REPORTED. CARDIAC ROBERTSON, PT HAS VARIED IN SR-ST WITH HR 90-100'S. NO C/O CP OR PRESSURE T/O THE NIGHT. ABLE TO IND ABULATE TO BATHROOM W/O NEED FOR NURSE ASSIST. NO NEW ORDERS AT THIS TIME, WILL REPORT TO ONCOMING RN. VSMegan, REVA T/O THE SHIFT
[2022-11-04 07:26] VITALS: BP 107/69
[2022-11-04 10:23] LABS: BASOPHILS ABSOLUTE AUTO 0.03 K/mm3 (0.00-0.23); BASOPHILS PERCENT AUTO 0 % (0-2); EOSINOPHILS ABSOLUTE AUTO 0.05 K/mm3 (0.00-0.68); EOSINOPHILS PERCENT AUTO 1 % (0-6); Hematocrit 31.5 % (33.0-51.0); Hemoglobin 10.2 g/dL (11.5-16.0); IMMATURE GRAN ABSOLUTE AUTO 0.02 K/mm3 (0.00-0.10); IMMATURE GRAN PERCENT AUTO 0 % (0-1); LYMPHOCYTES ABSOLUTE AUTO 2.47 K/mm3 (0.84-5.20); LYMPHOCYTES PERCENT AUTO 33 % (21-46); MONOCYTES ABSOLUTE AUTO 0.55 K/mm3 (0.16-1.47); MONOCYTES PERCENT AUTO 7 % (4-13); Mean Corpuscular HGB 27.6 pg (26.0-34.0); Mean Corpuscular HGB Conc 32.4 g/dL (31.5-36.5); Mean Corpuscular Volume 85 fL (80-100); Mean Platelet Volume 11.4 fL (9.1-12.4); NEUTROPHILS ABSOLUTE AUTO 4.46 K/mm3 (1.96-9.15); NEUTROPHILS PERCENT AUTO 59 % (41-73); Platelet Count 305 K/mm3 (150-400); RDW Coefficient Variation 13.3 % (11.7-14.2); RDW Standard Deviation 41.5 fL (35.1-46.3); Red Blood Cell Count 3.69 M/mm3 (3.80-5.20); White Blood Cell Count 7.58 K/mm3 (4.00-11.30)
[2022-11-04 10:52] LABS: Albumin, Blood 2.8 g/dL (3.4-5.0); Albumin/Globulin Ratio 0.9 (0.8-1.8); Bilirubin, Total 0.4 mg/dL (0.1-1.0); Bun/Creatinine Ratio 9.9 (12.0-20.0); Calcium, Blood 7.9 mg/dL (8.5-10.1); Creatinine, Blood 0.51 mg/dL (0.40-1.00); Globulin, Blood 3.2 g/dL (2.2-4.0); Potassium, Blood 4.1 mmol/L (3.5-5.5)
[2022-11-04 11:43] VITALS: BP 119/77
[2022-11-04] MEDS ORDERED: ONDA4 PO ×2 (14:16)
--- NOTE | 2022-11-04 14:55 | NUR ---
DISCHARGE: PT HAS BEEN A&Ox4, O2 SATS >92% ON RA, SR ON MONITOR. POC GLUCOSE LEVELS WELL MANAGED AT THIS TIME. PT TOLERATING PO INTAKE W/NO N/V/D. PT HAS BEEN CLEARED FOR DC HOME. IV ACCESS DC'd WNL. PT HAS BEEN PROVIDED W/DC INSTRUCTIONS AND PAPERWORK, V/U. PT RESTING QUIETLY IN ROOM, AWAITING RIDE.
[2022-11-05] MEDS ORDERED: PROM25 PO (17:05)
[2022-11-05] MEDS ORDERED: METO10 PO (17:05)
== END 2022-11-04 15:06 | disposition home or self-care (01) | DRG 639 ==
LOC: ER 10:24 → PCU 14:08
PROVIDERS: Internal Medicine; Physician Assistant; ADMIT Family Medicine
DX: E11.10 Type 2 diabetes mellitus with ketoacidosis without coma (principal); F41.8 Other specified anxiety disorders; E78.5 Hyperlipidemia, unspecified; K21.9 Gastro-esophageal reflux disease without esophagitis; F12.10 Cannabis abuse, uncomplicated; E03.9 Hypothyroidism, unspecified; F17.210 Nicotine dependence, cigarettes, uncomplicated; Z98.51 Tubal ligation status; Z88.5 Allergy status to narcotic agent; Z79.899 Other long term (current) drug therapy; Z79.02 Long term (current) use of antithrombotics/antiplatelets; Z79.4 Long term (current) use of insulin; Z79.51 Long term (current) use of inhaled steroids; Z79.52 Long term (current) use of systemic steroids; Z87.442 Personal history of urinary calculi; Z90.49 Acquired absence of other specified parts of digestive tract; Z98.890 Other specified postprocedural states
CPT/HCPCS: 36415; 80053; 82803; 82947; 83690; 83735; 84703; 85025; 94760; 96361; 96374; 96375; 99284-25; A9270; J1650; J1815; J2405; J3475; J7030

== ENCOUNTER 2022-11-05 12:56 | Emergency (ER) | payer OTHER ==
[~2022-11-05] VITALS: Ht 162.6 cm; Wt 84.4 kg
[~2022-11-05 12:56] MED LIST changes: +ONDA4 PO; +POTA8 PO
[2022-11-05 13:36] LABS: Source, Urine Clean Catch
[2022-11-05 13:36] LABS: Base Excess Venous -5.3 mmol/L; Bicarbonate Venous 20.9 mmol/L (24.0-30.0); PCO2 Venous 30.1 mmHg (38-42); pH Blood Venous 7.42 (7.34-7.37)
[2022-11-05 13:39] LABS: Bilirubin, Urine Neg (Neg); Blood, Urine Neg (Neg); Color, Urine Yellow (P-Yellow); Glucose Qualitative, Urine 3+ (Neg); Ketones, Urine 4+ (Neg); Leukocyte Esterase, Urine Neg (Neg); Nitrite, Urine Neg (Neg); Protein, Urine 1+ (Neg); Urobilinogen, Urine NORM (Normal)
[2022-11-05 13:40] LABS: BASOPHILS ABSOLUTE AUTO 0.05 K/mm3 (0.00-0.23); BASOPHILS PERCENT AUTO 1 % (0-2); EOSINOPHILS ABSOLUTE AUTO 0.02 K/mm3 (0.00-0.68); EOSINOPHILS PERCENT AUTO 0 % (0-6); Hematocrit 35.8 % (33.0-51.0); Hemoglobin 11.7 g/dL (11.5-16.0); IMMATURE GRAN ABSOLUTE AUTO 0.03 K/mm3 (0.00-0.10); IMMATURE GRAN PERCENT AUTO 0 % (0-1); LYMPHOCYTES ABSOLUTE AUTO 1.72 K/mm3 (0.84-5.20); LYMPHOCYTES PERCENT AUTO 22 % (21-46); MONOCYTES ABSOLUTE AUTO 0.39 K/mm3 (0.16-1.47); MONOCYTES PERCENT AUTO 5 % (4-13); Mean Corpuscular HGB 27.8 pg (26.0-34.0); Mean Corpuscular HGB Conc 32.7 g/dL (31.5-36.5); Mean Corpuscular Volume 85 fL (80-100); Mean Platelet Volume 11.4 fL (9.1-12.4); NEUTROPHILS ABSOLUTE AUTO 5.73 K/mm3 (1.96-9.15); NEUTROPHILS PERCENT AUTO 72 % (41-73); Platelet Count 315 K/mm3 (150-400); RDW Coefficient Variation 13.6 % (11.7-14.2); Red Blood Cell Count 4.21 M/mm3 (3.80-5.20); White Blood Cell Count 7.94 K/mm3 (4.00-11.30)
[2022-11-05 13:53] LABS: Appearance, Urine Hazy (Clear); Bacteria Mod /hpf; Mucus Light (0-Heavy); Red Blood Cells, Urine 0-2 /hpf (0-2); Squamous Epithelial Cells Many /hpf (Few); White Blood Cells, Urine 0-2 /hpf (0-5)
[2022-11-05 13:59] LABS: Albumin, Blood 3.5 g/dL (3.4-5.0); Albumin/Globulin Ratio 0.9 (0.8-1.8); Bilirubin, Total 0.4 mg/dL (0.1-1.0); Bun/Creatinine Ratio 8.6 (12.0-20.0); Calcium, Blood 9.1 mg/dL (8.5-10.1); Creatinine, Blood 0.47 mg/dL (0.40-1.00); Potassium, Blood 3.8 mmol/L (3.5-5.5); Total Protein, Blood 7.5 g/dL (6.4-8.2)
[2022-11-05] MEDS ORDERED: METO10 PO (17:05)
[2022-11-05] MEDS ORDERED: PROM25 PO (17:05)
[2022-11-05 17:22] VITALS: BP 122/82
== END 2022-11-05 17:20 | disposition home or self-care (01) ==
LOC: ER 12:56
PROVIDERS: Physician Assistant
DX: E11.43 Type 2 diabetes mellitus with diabetic autonomic (poly)neuropathy (principal); K31.84 Gastroparesis; E78.5 Hyperlipidemia, unspecified; Z79.899 Other long term (current) drug therapy; Z79.4 Long term (current) use of insulin
CPT/HCPCS: 36415; 80053; 81001; 82803; 85025; 87086; 87147; 96361; 96374; 96375; 99284-25; J2550; J2765; J7030

== ENCOUNTER 2023-05-20 21:38 | Emergency (ER) | payer OTHER ==
[~2023-05-20] VITALS: Ht 162.6 cm; Wt 72.6 kg
[~2023-05-20 21:38] MED LIST changes: +METO10 PO
[2023-05-20 22:34] LABS: BASOPHILS ABSOLUTE AUTO 0.06 K/mm3 (0.00-0.23); BASOPHILS PERCENT AUTO 1 % (0-2); EOSINOPHILS PERCENT AUTO 1 % (0-6); Hemoglobin 13.5 g/dL (11.5-16.0); IMMATURE GRAN ABSOLUTE AUTO 0.03 K/mm3 (0.00-0.10); IMMATURE GRAN PERCENT AUTO 0 % (0-1); LYMPHOCYTES ABSOLUTE AUTO 4.43 K/mm3 (0.84-5.20); LYMPHOCYTES PERCENT AUTO 44 % (21-46); MONOCYTES ABSOLUTE AUTO 0.81 K/mm3 (0.16-1.47); MONOCYTES PERCENT AUTO 8 % (4-13); Mean Corpuscular HGB 27.2 pg (26.0-34.0); Mean Corpuscular HGB Conc 33.8 g/dL (31.5-36.5); Mean Corpuscular Volume 81 fL (80-100); Mean Platelet Volume 11.9 fL (9.1-12.4); NEUTROPHILS PERCENT AUTO 46 % (41-73); Platelet Count 406 K/mm3 (150-400); RDW Coefficient Variation 13.6 % (11.7-14.2); RDW Standard Deviation 39.4 fL (35.1-46.3); Red Blood Cell Count 4.96 M/mm3 (3.80-5.20); White Blood Cell Count 10.03 K/mm3 (4.00-11.30)
[2023-05-20 22:56] LABS: Albumin, Blood 3.7 g/dL (3.4-5.0); Albumin/Globulin Ratio 0.7 (0.8-1.8); Bilirubin, Total 0.5 mg/dL (0.1-1.0); Bun/Creatinine Ratio 31.3 (12.0-20.0); Calcium, Blood 10.1 mg/dL (8.5-10.1); Creatinine, Blood 0.64 mg/dL (0.40-1.00); Globulin, Blood 5.1 g/dL (2.2-4.0); Potassium, Blood 4.3 mmol/L (3.5-5.5); Total Protein, Blood 8.8 g/dL (6.4-8.2)
[2023-05-21] MEDS ORDERED: PREG75 PO (00:55)
[2023-05-21 01:29] LABS: Base Excess Venous 0.9 mmol/L; Bicarbonate Venous 25.2 mmol/L (24.0-30.0); PCO2 Venous 38.7 mmHg (38-42); pH Blood Venous 7.42 (7.34-7.37)
[2023-05-21 01:33] LABS: Beta-hydroxybutyrate 2.9 mg/dL (0.2-2.8)
[2023-05-21 02:23] LABS: Source, Urine Clean Catch
[2023-05-21 02:30] LABS: Bilirubin, Urine Neg (Neg); Blood, Urine Neg (Neg); Glucose Qualitative, Urine 4+ (Neg); Ketones, Urine 3+ (Neg); Leukocyte Esterase, Urine Neg (Neg); Nitrite, Urine Neg (Neg); Protein, Urine 1+ (Neg); Specific Gravity, Urine 1.025 (1.003-1.022); Urobilinogen, Urine NORM (Normal)
[2023-05-21 02:55] LABS: Appearance, Urine Clear (Clear); Color, Urine Yellow (P-Yellow)
[2023-05-21 03:30] VITALS: BP 97/65
== END 2023-05-21 03:41 | disposition home or self-care (01) ==
LOC: ER 21:38
PROVIDERS: Emergency Medicine
DX: B34.9 Viral infection, unspecified (principal); E10.65 Type 1 diabetes mellitus with hyperglycemia; E86.0 Dehydration
CPT/HCPCS: 80053; 82010; 82803; 82947; 84703; 85025; 96361; 96374; 96375; 99284-25; J1885; J2405; J7030